=== PATIENT | female | born 1985 | race Caucasian/White ===

== ENCOUNTER → 2023-04-09 | Outpatient (CLI) | payer OTHER | END | disposition home or self-care (01) | LOC: NST 08:59 | PROVIDERS: ATTEND Obstetrics & Gynecology Maternal & Fetal Medicine | DX: Z34.80 Encounter for supervision of other normal pregnancy, unspecified trimester (principal) ==

== ENCOUNTER 2023-06-20 18:55 | Emergency (ER) | payer OTHER ==
[~2023-06-20] VITALS: Ht 157.5 cm; Wt 78.0 kg
== END 2023-06-21 00:19 | disposition home or self-care (01) ==
LOC: ER 18:55
DX: O22.43 Hemorrhoids in pregnancy, third trimester (principal); Z3A.36 36 weeks gestation of pregnancy; Z88.6 Allergy status to analgesic agent

== ENCOUNTER 2023-06-25 19:56 | Inpatient (IN) | payer OTHER ==
[~2023-06-25] VITALS: Ht 157.5 cm; Wt 78.0 kg
== END 2023-06-29 11:20 | disposition home or self-care (01) | DRG 807 ==
LOC: LDR 19:56 → OB/GYN 06-26 16:03
PROVIDERS: ADMIT Obstetrics & Gynecology Maternal & Fetal Medicine; ATTEND Obstetrics & Gynecology Maternal & Fetal Medicine
PROC: 4A1HXCZ Monitoring of Products of Conception, Cardiac Rate, External Approach (ICD-10-PCS; 2023-06-25)
PROC: 10E0XZZ Delivery of Products of Conception, External Approach (ICD-10-PCS; principal; 2023-06-26)
PROC: 0HQ9XZZ Repair Perineum Skin, External Approach (ICD-10-PCS; 2023-06-26)
DX: O70.0 First degree perineal laceration during delivery (principal); Z37.0 Single live birth; Z3A.37 37 weeks gestation of pregnancy; Z20.822 Contact with and (suspected) exposure to COVID-19

== ENCOUNTER 2024-01-18 11:57 | Outpatient (CLI) | payer OTHER | END 2024-01-18 12:16 | disposition home or self-care (01) | LOC: MAMO-SONO 11:57 | DX: N63 Unspecified lump in breast (principal); N64.4 Mastodynia; N60.11 Diffuse cystic mastopathy of right breast; N64.9 Disorder of breast, unspecified ==

== ENCOUNTER 2025-05-15 09:19 | Outpatient (CLI) | payer OTHER | END 2025-05-15 09:27 | disposition home or self-care (01) | LOC: MAMO-SONO 09:19 | DX: N63.0 Unspecified lump in unspecified breast (principal) ==